=== PATIENT | female | born 1945 | race Caucasian/White ===

== ENCOUNTER 2018-09-17 15:37 | Emergency (ER) | payer OTHER ==
[~2018-09-17] VITALS: Ht 165.1 cm; Wt 117.3 kg
[2018-09-17 15:41] VITALS: BP 152/80
== END 2018-09-17 16:14 | disposition home or self-care (01) ==
LOC: ED 16:08
DX: G89.29 Other chronic pain (principal); M25.562 Pain in left knee; M25.561 Pain in right knee; Z76.0 Encounter for issue of repeat prescription
CPT/HCPCS: 99283